=== PATIENT | female | born 1980 | race Caucasian/White ===

== ENCOUNTER → 2018-02-01 | Outpatient (CLI) | payer OTHER | LOC: CAT 08:15 | DX: M47.816 Spondylosis without myelopathy or radiculopathy, lumbar region (principal); M51.25 Other intervertebral disc displacement, thoracolumbar region; M51.34 Other intervertebral disc degeneration, thoracic region; G89.4 Chronic pain syndrome ==

== ENCOUNTER → 2020-10-16 | Outpatient (CLI) | payer OTHER | LOC: RAD 16:46 | DX: M79.672 Pain in left foot (principal); G56.01 Carpal tunnel syndrome, right upper limb; N31.9 Neuromuscular dysfunction of bladder, unspecified; M51.34 Other intervertebral disc degeneration, thoracic region; M51.26 Other intervertebral disc displacement, lumbar region; M51.24 Other intervertebral disc displacement, thoracic region ==